=== PATIENT | female | born 1975 | race Caucasian/White ===

== ENCOUNTER 2018-12-05 00:52 | Inpatient (IN) | payer OTHER ==
[~2018-12-05] VITALS: Ht 160 cm; Wt 81.6 kg
[~2018-12-05 00:52] MED LIST: BIRTH CONTROL PILL; HYOSCYAMIN125 MCG/5 PO; ZOFRAN ODT4 MG PO
[2018-12-05 01:01] VITALS: BP 123/83
[2018-12-05] MEDS ORDERED: ZOLOFT50 MG PO (01:05)
[2018-12-05] MEDS ORDERED: LISINOPRIL10 MG PO (01:06)
[2018-12-05 02:34] LABS: HEMATOCRIT 39.5 % (37.0-47.0); MCH 26.8 pg (26.0-34.0); MCHC 32.8 g/dL (28.0-37.0); MCV 81.8 fL (80.0-100.0); MPV 8.6 fl. (7.2-11.1); NUCLEATED RBCS 0 /100WBC; PLATELET COUNT* 325 thou/uL (150-400); RBC 4.83 mil/uL (4.20-5.00); RDW-CV 15.2 % (10.5-14.5); WBC 24.2 thou/uL (4.0-11.0)
[2018-12-05 02:46] LABS: ALBUMIN 3.6 g/dL (3.4-5.0); CALCIUM 8.6 mg/dL (8.5-10.1); CREATININE 1.2 mg/dL (0.6-1.3); POTASSIUM 4.5 mmol/L (3.5-5.1); TOTAL BILIRUBIN 0.4 mg/dL (<0.1-1.0); TOTAL PROTEIN 7.9 g/dL (6.4-8.2)
[2018-12-05 03:54] LABS: ABSOLUTE MONOCYTES 0.2 thou/uL (0.0-1.2); ANISOCYTOSIS 1+; PLATELET ESTIMATE ADEQUATE
[2018-12-05 04:56] VITALS: BP 121/77
[2018-12-05 05:20] VITALS: BP 115/74
--- NOTE | 2018-12-05 05:29 | NUR ---
PT ARRIVED ON UNIT AT 0458 FROM ER. PT A&Ox4. VITALS STABLE, CHARTED. ASSESSMENT COMPLETE. PT SETTLED IN ROOM WITH BELONGINGS. IV IN R WRIST PATENT, INFUSING. REMAINS NPO. REMAINS ON BEDREST. NO VOMITING OR BM SINCE ARRIVED. CALL LIGHT WITHIN REACH. WILL CONTINUE TO MONITOR.
[2018-12-05 08:00] VITALS: BP 123/64
[2018-12-05 12:20] LABS: URINE BILIRUBIN NEGATIVE (Negative); URINE BLOOD NEGATIVE (Negative); URINE CLARITY CLEAR; URINE COLOR YELLOW; URINE GLUCOSE-RANDOM NEGATIVE (Negative); URINE KETONES NEGATIVE (Negative); URINE LEUKOCYTES-REFLEX NEGATIVE (Negative); URINE NITRITE-REFLEX NEGATIVE (Negative); URINE PROTEIN NEGATIVE (Negative); URINE UROBILINOGEN 0.2 E.U./dl (0.2-1.0)
[2018-12-05 14:50] LABS: AMP/METHAMP Negative (Negative); BARBITURATES Negative (Negative); BENZODIAZEPINES Negative (Negative); COCAINE Negative (Negative); METHADONE Negative (Negative); OPIATES Negative (Negative); PCP Negative (Negative); THC Negative (Negative)
[2018-12-05 17:08] VITALS: BP 92/51
--- NOTE | 2018-12-05 18:46 | NUR ---
ALERT AND ORIENTED X4. UP AD JASON IN ROOM. IV IS PATENT AND INFUSING. DENIES NEED FOR PAIN OR NAUSEA MEDICATION. TOLERATING DIET. ANTIBIOTIC GIVEN CHARTED. VSS ON ROOM AIR. HOURLY ROUNDS HAVE BEEN MAINTAINED THROUGHOUT SHIFT. CALL LIGHT IS WITHIN REACH. NURSING WILL CONTINUE TO MONITOR.
[2018-12-05 20:15] VITALS: BP 92/46
[2018-12-06 04:34] LABS: CALCIUM 7.6 mg/dL (8.5-10.1); CREATININE 0.8 mg/dL (0.6-1.3); MAGNESIUM 1.9 mg/dL (1.8-2.4); POTASSIUM 3.7 mmol/L (3.5-5.1)
[2018-12-06 04:41] LABS: HEMATOCRIT 32.3 % (37.0-47.0); MCH 27.7 pg (26.0-34.0); MCHC 33.8 g/dL (28.0-37.0); MCV 81.9 fL (80.0-100.0); MPV 8.4 fl. (7.2-11.1); RBC 3.94 mil/uL (4.20-5.00); RDW-CV 14.8 % (10.5-14.5)
[2018-12-06 04:55] LABS: HEMOGLOBIN 10.9 gm/dL (12.0-15.0); WBC 5.7 thou/uL (4.0-11.0)
--- NOTE | 2018-12-06 06:10 | NUR ---
PATIENT HAS SLEPT WELL THROUGHOUT THE NIGHT. VSS ON RA. NO C/O PAIN DURING SHIFT. PATIENT UP AD-JASON. IV IN RIGHT WRIST-NS @ 100ML/HR. PATIENT INSTRUCTED TO USE CALL LIGHT WHEN NEEDING ASSISTANCE. HOURLY ROUNDS MADE. WILL CONTINUE WITH PLAN OF CARE AND NURSING TO MONITOR.
[2018-12-06 08:30] VITALS: BP 90/57
[2018-12-06 11:46] VITALS: BP 90/57
--- NOTE | 2018-12-06 13:13 | NUR ---
PATIENT LEFT UNIT AT 1250. ALERT AND ORIENTED X4. UP AD JASON IN ROOM. IV DC'D. DENIES NEED FOR PAIN OR NAUSEA MEDICATION. TOLERATING REGULAR DIET. ALL PERSONAL ITEMS LEFT WITH PATIENT. DISCHARGE INSTRUCTIONS, PRESCRIPTIONS, AND NEW MEDICATION INFORMATION SENT WITH PATIENT. VSS ON ROOM AIR. HOURLY ROUNDS HAVE BEEN MAINTAINED THROUGHOUT SHIFT. LEFT WITH FAMILY MEMBER VIA CAR.
[2018-12-06 13:15] VITALS: BP 90/57
== END 2018-12-06 12:50 | disposition home or self-care (01) | DRG 392 ==
LOC: M.ERS 00:52 → M.TBA-ER 04:15 → M.ORTHSURG 04:15
PROVIDERS: Family Medicine; ADMIT Internal Medicine
DX: A08.4 Viral intestinal infection, unspecified (principal); E86.0 Dehydration; I12.9 Hypertensive chronic kidney disease with stage 1 through stage 4 chronic kidney disease, or unspecified chronic kidney disease; N18.3 Chronic kidney disease, stage 3 (moderate); F41.9 Anxiety disorder, unspecified; Z98.891 History of uterine scar from previous surgery; Z90.49 Acquired absence of other specified parts of digestive tract; Z79.899 Other long term (current) drug therapy; Z28.21 Immunization not carried out because of patient refusal